=== PATIENT | male | born 1975 | race African-American/Black ===

== ENCOUNTER 2020-09-29 18:02 | Observation (INO) | payer MEDICAID ==
[~2020-09-29] VITALS: Ht 165.1 cm; Wt 82.9 kg
--- NOTE | 2020-09-29 19:30 | NUR ---
Pt transferred from [facility] via em[facility] to [facility] with chest pain. pt alert and oriented x4 denies chest pain at this time.pt has hepatin gtt infusing as per cardiovascular protocol. dr payan paged for admitting orders. admission packet given, pt oriented to unit, staff and procedures. pt verbalized understanding. call light in place will cont to monitor status and safety. pmrn
[2020-09-29 19:56] VITALS: BP 149/94
[2020-09-29] MEDS ORDERED: MORPHINE SULFATE 2 MG/ML VIAL. IV PRN (21:00)
[2020-09-29] MEDS ORDERED: HEPARIN for IV BOLUS 10,000 UNIT/10 ML VIAL. IV PRN (21:00)
[2020-09-29] MEDS ORDERED: NITROGLYCERIN SUBLINGUAL 0.4 MG BOTTLE OF 25. SL PRN (21:00)
[2020-09-29] MEDS ORDERED: HEPARIN 25,000UTS/250ML PREMIX 250 ML IV PRN (21:00)
[2020-09-29] MEDS ORDERED: ATORVASTATIN CALCIUM 40 MG TABLET. PO SCH (21:00)
[2020-09-29 22:58] VITALS: BP 141/85
[2020-09-29 23:52] LABS: AMPHETAMINE/METHAMPHETAMINE NEG (NEG); BARBITURATES NEG (NEG); BENZODIAZEPINES NEG (NEG); CANNABINOIDS POS (NEG); COCAINE POS (NEG); METHADONE NEG (NEG); OPIATES POS (NEG); PHENCYCLIDINE NEG (NEG)
[2020-09-30 02:48] VITALS: BP 149/80
[2020-09-30] MEDS: ONDANSETRON PF 4 MG/2 ML VIAL. IVP PRN ×2 (04:52→10:47)
[2020-09-30 07:00] VITALS: BP 136/84
[2020-09-30 07:15] LABS: BASO # 0.1 x10^3/uL (0.0-0.2); BASO % 1 % (0-3); CALCIUM 9.2 mg/dL (8.5-10.1); CREATININE 0.7 mg/dL (0.7-1.3); EOS # 0.2 x10^3/uL (0.0-0.7); EOS % 2 % (0-3); GFR 147.6; HEMATOCRIT 45.8 % (39.0-53.0); HEMOGLOBIN 15.2 g/dL (13.0-17.5); LYMPH # 3.4 x10^3/uL (1.0-4.8); LYMPH % 30 % (24-48); MEAN CORPUSCULAR HEMOGLOBIN 28 pg (25-35); MEAN CORPUSCULAR HGB CONC 33 g/dL (31-37); MEAN CORPUSCULAR VOLUME 86 fL (79-100); MONO % 9 % (0-9); NEUT # 6.7 x10^3/uL (1.8-7.7); NEUT % 59 % (31-73); PLATELET COUNT 328 x10^3/uL (140-400); POTASSIUM 4.6 mmol/L (3.5-5.1); RED BLOOD COUNT 5.35 x10^6/uL (4.30-5.70); RED CELL DISTRIBUTION WIDTH 14.6 % (11.5-14.5); WHITE BLOOD COUNT 11.4 x10^3/uL (4.0-11.0)
[2020-09-30 07:16] LABS: CHOLESTEROL/HDL RATIO 4.3
--- NOTE | 2020-09-30 08:20 | PDOC1 ---
History and Physical Date of Admission Date of Admission DATE: 09/30/20 TIME: 08:20 Identification/Chief Complaint Chief Complaint dictated Current Medications Current Medications Current Medications Atorvastatin Calcium (Lipitor) 40 mg QHS PO Last administered on 09/29/20at 21:39; Start 09/29/20 at 21:00 Morphine Sulfate (Morphine Sulfate) 2 mg PRN Q2HR PRN IV PAIN; Start 09/29/20 at 21:00 Heparin Sodium/ Dextrose 250 ml @ 0 mls/hr CONT PRN IV PER PROTOCOL Last administered on 09/29/20at 21:45; Start 09/29/20 at 21:00 Heparin Sodium (Porcine) (Heparin Sodium) 2,050 unit PRN Q6HRS PRN IV FOR UFH LEVEL LESS THAN 0.2 Last administered on 09/29/20at 22:24; Start 09/29/20 at 21:00 Nitroglycerin (Nitrostat) 0.4 mg PRN Q5MIN PRN SL CHEST PAIN; Start 09/29/20 at 21:00 Ondansetron HCl (Zofran) 4 mg PRN Q6HRS PRN IVP NAUSEA/VOMITING Last administered on 09/30/20at 04:52; Start 09/30/20 at 04:45 Active Scripts Active Reported No Known Medications Prior To Admisstion (Info) Each 1 Each Allergies Allergies: Coded Allergies: No Known Allergies (Verified Allergy, Unknown, 09/29/20) Vitals Vitals Vital Signs Date Time Temp Pulse Resp B/P (MAP) Pulse Ox O2 Delivery O2 Flow Rate FiO2 09/30/20 07:55 Room Air 09/30/20 07:00 98.8 100 16 136/84 (101) 98 98.8 Labs Labs Laboratory Tests Test 09/29/20 21:10 09/29/20 22:25 09/29/20 22:45 09/30/20 06:10 Heparin Anti-Xa Act, Unfractionated < 0.10 IU/mL (0.30-0.70) < 0.10 IU/mL (0.30-0.70) Troponin I Quantitative 2.028 ng/mL (0.000-0.055) SARS-CoV-2 Antigen (Rapid) Negative (NEGATIVE) Urine Opiates Screen Pos (NEG) Urine Methadone Screen Neg (NEG) Urine Barbiturates Neg (NEG) Urine Phencyclidine Screen Neg (NEG) Urine Amphetamine/Methamphetamine Neg (NEG) Urine Benzodiazepines Screen Neg (NEG) Urine Cocaine Screen Pos (NEG) Urine Cannabinoids Screen Pos (NEG) Urine Ethyl Alcohol Neg (NEG) White Blood Count 11.4 x10^3/uL (4.0-11.0) Red Blood Count 5.35 x10^6/uL (4.30-5.70) Hemoglobin 15.2 g/dL (13.0-17.5) Hematocrit 45.8 % (39.0-53.0) Mean Corpuscular Volume 86 fL (79-100) Mean Corpuscular Hemoglobin 28 pg (25-35) Mean Corpuscular Hemoglobin Concent 33 g/dL (31-37) Red Cell Distribution Width 14.6 % (11.5-14.5) Platelet Count 328 x10^3/uL (140-400) Neutrophils (%) (Auto) 59 % (31-73) Lymphocytes (%) (Auto) 30 % (24-48) Monocytes (%) (Auto) 9 % (0-9) Eosinophils (%) (Auto) 2 % (0-3) Basophils (%) (Auto) 1 % (0-3) Neutrophils # (Auto) 6.7 x10^3/uL (1.8-7.7) Lymphocytes # (Auto) 3.4 x10^3/uL (1.0-4.8) Monocytes # (Auto) 1.0 x10^3/uL (0.0-1.1) Eosinophils # (Auto) 0.2 x10^3/uL (0.0-0.7) Basophils # (Auto) 0.1 x10^3/uL (0.0-0.2) Sodium Level 138 mmol/L (136-145) Potassium Level 4.6 mmol/L (3.5-5.1) Chloride Level 102 mmol/L (98-107) Carbon Dioxide Level 22 mmol/L (21-32) Anion Gap 14 (6-14) Blood Urea Nitrogen 11 mg/dL (8-26) Creatinine 0.7 mg/dL (0.7-1.3) Estimated GFR (Cockcroft-Gault) 147.6 Glucose Level 115 mg/dL (70-99) Calcium Level 9.2 mg/dL (8.5-10.1) Triglycerides Level 102 mg/dL (0-150) Cholesterol Level 207 mg/dL (0-200) LDL Cholesterol, Calculated 139 mg/dL (0-100) VLDL Cholesterol, Calculated 20 mg/dL (0-40) Non-HDL Cholesterol Calculated 159 mg/dL (0-129) HDL Cholesterol 48 mg/dL (40-60) Cholesterol/HDL Ratio 4.3 Laboratory Tests Test 09/29/20 21:10 09/29/20 22:25 09/29/20 22:45 09/30/20 06:10 Heparin Anti-Xa Act, Unfractionated < 0.10 IU/mL (0.30-0.70) < 0.10 IU/mL (0.30-0.70) Troponin I Quantitative 2.028 ng/mL (0.000-0.055) SARS-CoV-2 Antigen (Rapid) Negative (NEGATIVE) Urine Opiates Screen Pos (NEG) Urine Methadone Screen Neg (NEG) Urine Barbiturates Neg (NEG) Urine Phencyclidine Screen Neg (NEG) Urine Amphetamine/Methamphetamine Neg (NEG) Urine Benzodiazepines Screen Neg (NEG) Urine Cocaine Screen Pos (NEG) Urine Cannabinoids Screen Pos (NEG) Urine Ethyl Alcohol Neg (NEG) White Blood Count 11.4 x10^3/uL (4.0-11.0) Red Blood Count 5.35 x10^6/uL (4.30-5.70) Hemoglobin 15.2 g/dL (13.0-17.5) Hematocrit 45.8 % (39.0-53.0) Mean Corpuscular Volume 86 fL (79-100) Mean Corpuscular Hemoglobin 28 pg (25-35) Mean Corpuscular Hemoglobin Concent 33 g/dL (31-37) Red Cell Distribution Width 14.6 % (11.5-14.5) Platelet Count 328 x10^3/uL (140-400) Neutrophils (%) (Auto) 59 % (31-73) Lymphocytes (%) (Auto) 30 % (24-48) Monocytes (%) (Auto) 9 % (0-9) Eosinophils (%) (Auto) 2 % (0-3) Basophils (%) (Auto) 1 % (0-3) Neutrophils # (Auto) 6.7 x10^3/uL (1.8-7.7) Lymphocytes # (Auto) 3.4 x10^3/uL (1.0-4.8) Monocytes # (Auto) 1.0 x10^3/uL (0.0-1.1) Eosinophils # (Auto) 0.2 x10^3/uL (0.0-0.7) Basophils # (Auto) 0.1 x10^3/uL (0.0-0.2) Sodium Level 138 mmol/L (136-145) Potassium Level 4.6 mmol/L (3.5-5.1) Chloride Level 102 mmol/L (98-107) Carbon Dioxide Level 22 mmol/L (21-32) Anion Gap 14 (6-14) Blood Urea Nitrogen 11 mg/dL (8-26) Creatinine 0.7 mg/dL (0.7-1.3) Estimated GFR (Cockcroft-Gault) 147.6 Glucose Level 115 mg/dL (70-99) Calcium Level 9.2 mg/dL (8.5-10.1) Triglycerides Level 102 mg/dL (0-150) Cholesterol Level 207 mg/dL (0-200) LDL Cholesterol, Calculated 139 mg/dL (0-100) VLDL Cholesterol, Calculated 20 mg/dL (0-40) Non-HDL Cholesterol Calculated 159 mg/dL (0-129) HDL Cholesterol 48 mg/dL (40-60) Cholesterol/HDL Ratio 4.3 VTE Prophylaxis Ordered VTE Prophylaxis Devices: Yes VTE Pharmacological Prophylaxi: Yes Justifications for Admission Other Justification YON GIFFORD MD Sep 30, 2020 08:20
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
--- NOTE | 2020-09-30 09:08 | EKG ---
[facility] [address] [place] [address] Test Date: 2020-09-30 Test Time: 09:03:23 Pat Name: ERIC ERNST Department: Room: 260 1 Gender: M Payment Collector: DARINEL : 1975 Requested By: GODWIN HOLDER Order Number: [id number] Reading MD: Measurements Intervals [place] Rate: 78 P: 54 MI: 152 QRS: 42 QRSD: 92 T: -8 QT: 394 QTc: 453 Interpretive Statements SINUS RHYTHM QRS(T) CONTOUR ABNORMALITY CONSIDER INFERIOR MYOCARDIAL DAMAGE T ABNORMALITY IN ANTERIOR LEADS ABNORMAL ECG RI6.02 No previous ECG available for comparison
--- NOTE | 2020-09-30 10:20 | EKG ---
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
[2020-09-30] MEDS ORDERED: HALOPERIDOL LACTATE 5 MG/ML VIAL. IVP PRN (11:15)
[2020-09-30 11:17] VITALS: BP 137/75
[2020-09-30] MEDS ORDERED: amLODIPine BESYLATE 5 MG TABLET PO SCH (12:00)
--- NOTE | 2020-09-30 12:00 | NUR ---
PATIENT VOICED AMA. NOTIFIED DR GIFFORD.
[2020-09-30] MEDS ORDERED: ASPI-886 PO (12:13)
[2020-09-30] MEDS ORDERED: AMLO-186 PO (12:13)
[2020-09-30] MEDS ORDERED: METO-239 PO (12:13)
[2020-09-30] MEDS ORDERED: ATOR40TA59 PO (12:13)
[2020-09-30] MEDS ORDERED: NITR0.4T24 SL (12:13)
--- NOTE | 2020-09-30 12:14 | DISCH ---
DISCHARGE INSTRUCTIONS Condition on Discharge Condition on Discharge: Guarded Activity After Discharge Activity Instructions for Disc: Avoid exertion Lifting Instructions after Dis: No heavy lifting, No pulling or pushing Driving Instructions after Dis: Do not drive, Do not drive today Diet after Discharge Diet after Discharge: Cardiac Wound Incision Care Wound/Incision Care: Ice to area for comfort Checks after Discharge Checks after discharge: Check blood press - daily Contacting the DR. after DC Call your doctor for: If your condition worsens Follow-Up Follow up with: see cardiology 2 weeks, pcp this week Treatment/Equipment after DC Adaptive Equipment Issued: YON Linares MD Sep 30, 2020 12:14
--- NOTE | 2020-09-30 12:18 | NUR ---
SS following for discharge planning. SS reviewed pt chart and discussed with pt RN. Pt is from home and is currently on room air. Pt positive for heroin, cocaine, THC, and opiates. PAT team referral made for assessment and recommendations. Cardiology signed off. Discharge order on the chart for home with self care.
--- NOTE | 2020-09-30 12:24 | HP ---
ADMIT DATE: 09/29/2020 ADMISSION HISTORY CHIEF COMPLAINT: Chest pain, acute GA. HISTORY OF PRESENT ILLNESS: This 45-year-old male who was seen at [facility] last evening with complaints of chest pain. He apparently had been doing drugs including cocaine and marijuana. He is a heavy smoker. His troponin was elevated at 1.9. He was transferred here for higher level of care. He was seen by Cardiology, not felt to be a candidate for invasive studies due to his drug use, noncompliance. PAST MEDICAL HISTORY: Significant for substance abuse, previous francois, alcohol abuse, tobacco abuse, marijuana abuse. SOCIAL HISTORY: Lives in [place], heavy alcohol use, intermittently marijuana use. FAMILY HISTORY: Positive for hypertension, coronary artery disease. REVIEW OF SYSTEMS: The patient denies shortness of breath, visual change. Denies nausea. Has had some minor vomiting, which has resolved. Denies headache, vision disturbance, polyuria, polydipsia. Denies numbness, tingling. A 14-point review of systems otherwise negative. PHYSICAL EXAMINATION NECK: Supple. HEENT: Throat and pharynx are clear. NEUROLOGIC: Cranial nerves 2-12 are grossly intact. Reasoning and judgment are poor. Throat and pharynx are clear. Mucous membranes are moist. Muscles of mastication are symmetric bilaterally. Speech is within normal limits. Mood is normal. ABDOMEN: Soft. Bowel sounds are normal. EXTREMITIES: Without clubbing, cyanosis or edema. Had several tattoos present. LUNGS: Clear, without rales or rhonchi are labored distress. No wheezing. Ambulation was not checked. VITAL SIGNS: Blood pressure on admission was 107/74, pulse ox 98%, temperature 98.3. Chest x-ray: No acute process. LABORATORY DATA: In chart was completely reviewed. The patient was seen by Cardiology and echocardiogram was done. They have no further plans. PLAN: The patient will be dismissed today after echo if Cardiology approves. The patient was given counseling on alcohol and drug cessation. Time spent with the patient exam, chart review, the patient care coordination was 64 minutes, greater than 50% of time was spent with the patient exam, chart review and care coordination. PROGNOSIS: Very poor with his history of noncompliance and polysubstance abuse including cocaine. YON GIFFORD MD DR: MARCELLO/paola JOB#: [id number] / [id number]
--- NOTE | 2020-09-30 13:16 | NUR ---
DISCHARGED PATIENT TO HOME. DISCHARGE INSTRUCTIONS GIVEN. PIV AND HEART MONITOR REMOVED. ESCORTED PATIENT OFF UNIT PER WHEELCHAIR INTO A CAB.
[2020-09-30] MEDS ORDERED: ATORVASTATIN CALCIUM 10 MG TABLET. PO SCH (21:00)
[2020-10-01] MEDS ORDERED: ASPIRIN ENTERIC COATED 81 MG TABLET.DR. PO SCH (08:00)
== END 2020-09-30 13:15 | disposition home or self-care (01) ==
LOC: 2 SOUTH 19:24 → INTOOBSV 19:24
PROVIDERS: ADMIT Internal Medicine; ATTEND Internal Medicine
DX: I21.4 Non-ST elevation (NSTEMI) myocardial infarction (principal); Z20.822 Contact with and (suspected) exposure to COVID-19; R07.89 Other chest pain; E78.5 Hyperlipidemia, unspecified; E88.81 Metabolic syndrome and other insulin resistance; F17.210 Nicotine dependence, cigarettes, uncomplicated; F12.10 Cannabis abuse, uncomplicated; F14.10 Cocaine abuse, uncomplicated; Z91.19 Patient's noncompliance with other medical treatment and regimen
CPT/HCPCS: 36415; 80048; 80061; 80307; 84484; 85025; 85520; 87426; 93005; 96365; 96366; 96375; 96376; G0378; G0379; J1644; J2405; U0003